=== PATIENT | female | born 1985 | race Caucasian/White ===

== ENCOUNTER → 2018-01-14 08:23 | Outpatient (CLI) | payer MEDICAID, SELFPAY ==
--- NOTE | 2018-01-14 08:27 | US_ITS ---
US abdomen complete HISTORY: Bloating. Abdominal pain 30 pound weight gain. ITS.REASON: HEPATITIS C ,DRUG ABUSE AND DEPENDENCE ORDERING PHYSICIAN: Malena Fitzgerald PATIENT AGE: 32 years COMPARISON: None FINDINGS: PANCREAS:Unremarkable. No obvious mass or abnormal fluid collection. No ductal dilatation LIVER:No focal liver lesions demonstrated. Fairly Homogeneous echogenicity only question some subtle fatty changes and coarsening. No discrete lesions or findings. No intrahepatic biliary ductal dilatation evident GALLBLADDER:No gallstones, . There is definite sludge seen particularly on the decubitus views. COMMON DUCT normal diameter measuring 2.5 mm at hilum of liver RIGHT KIDNEY:Unremarkable. Normal size and echogenicity. No hydronephrosis Right kidney measures 11.5 cm in length and the left kidney 11.7 seem in length. Cortex well-maintained bilaterally . LEFT KIDNEY:Unremarkable. No hydronephrosis. Normal size and echogenicity. AORTA:No evidence of aneurysmal dilatation. 1.2 Cm at the level of umbilicus & tapers as it continues distal SPLEEN:Appears Satisfactory. It is normal to upper normal size, measuring 12 cm length. Normal size & echogenicity ASCITES:None evident. IMPRESSION:....... 1. Gallbladder. No gallstones but Definite sludge and debris noted 2. Liver. No significant focal abnormalities.. Overall satisfactory. 3. Pancreas, kidneys, aorta unremarkable Spleen upper normal size
== END ==
PROVIDERS: PCP Nurse Practitioner; Visit Provider Nurse Practitioner
DX: B17.10 Acute hepatitis C without hepatic coma (principal); F19.20 Other psychoactive substance dependence, uncomplicated
CPT/HCPCS: 76700

== ENCOUNTER → 2018-02-11 10:40 | Outpatient (CLI) | payer MEDICAID, SELFPAY ==
--- NOTE | 2018-02-11 10:46 | NM_ITS ---
I am HEPATOBILIARY SCAN WITH FATTY MEAL/ENSURE ORDERING PHYSICIAN : Malena Fitzgerald PATIENT AGE: 32 years GENDER: Female HISTORY: Right upper quadrant pain and nausea Abdominal pain drug abuse positive for hepatitis C Following 8.02 millicuries Tc Choletec, images of the RUQ were obtained. There is prompt uptake of radionuclide by the liver which is grossly unremarkable.. Overall good uptake by the liver with no focal lesions. Small bowel is visualized. This initial portion of the study is normal. The gallbladder was allowed to fill out to 60 minutes. Fatty meal/1 can of ensure over administered with imaging performed over 60 minutes minutes. Thereafter the obtain data was analyzed and reveals a robust 95% gallbladder ejection fraction (normal greater than 50%; borderline 35-50%). This is normal value . Visual inspection which supports that there is robust gallbladder ejection fraction IMPRESSION: Normal functioning gallbladder. 95 % % gallbladder ejection fraction by computer analysis. No pain after fatty meal.
--- NOTE | 2018-02-11 11:15 | HMH.ITSHM ---
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 []REMERON
== END ==
PROVIDERS: PCP Nurse Practitioner; Visit Provider Nurse Practitioner
DX: R10.9 Unspecified abdominal pain (principal); F19.20 Other psychoactive substance dependence, uncomplicated
CPT/HCPCS: 78226; A9537

== ENCOUNTER 2020-02-03 10:19 | Emergency (ER) | payer BC, SELFPAY ==
[2020-02-03 10:41] VITALS: BP 123/86; PULSE 86; RESP 19; TEMP 36.8; O2SAT 100; BMI 25.6
--- NOTE | 2020-02-03 10:47 | HMH.EDUTC ---
[facility] [place] Clinical Impression: Cough Disposition: Home, Self-Care Condition on Discharge: Good Instructions: Cough, DI for Nasal Congestion Additional Instructions: *Monitor Temp, Over the counter Motrin or Tylenol as directed/as needed Tylenol every 4 hours and Motrin every 6 hours (as long as your family doctor has told you that you can take it) for fever or pain. and straight to ER if unable to lower temp less than 101.0 after medication given *Warm salt water gargles may help to soothe the throat *Throat Lozenges *Warm fluids like tea with honey may help to soothe the throat *Sleep elevated *Humidifier/Vaporizer *Bromfed may cause drowsiness. Know how it effects you (your child) before driving, caring for small child, or sending your child to school. Not other antihistamines/allergy medications while taking bromfed Follow up IMMEDIATELY for new or worsening symptoms or no Noticeable improvement over the next 48-72 hours. 911 for difficulty breathing or swallowing You were tested for today for COVID19 your test result should be back in the next 24-48 hours, you may call to the [facility] to see if your test results are back in the next 48 hours [phone] [facility] hours are 9am-9pm You was given a handout with instructions for Self Quarantine and Self isolation for while you wait on test results and what to do if they are positive If you are positive the Health Dept will be contacting you also Prescriptions: Brompheniramine/Pseudoephed/Dm [Bromfed Dm Cough Syrup] 5 - 10 ml PO Q46H PRN #150 ml PRN Reason: Cough Transmission Status: Pending to [id number] Fluticasone Propionate [Flonase 50mcg nasal spray 16gm] 1 spr NS DAILY #1 bottle Transmission Status: Pending to [id number] Referrals: Malena Fitzgerald APRN [Primary Care Provider] - As needed Forms: Work/School Release Time of Disposition: 10:53 Medical Decision Making - Richard Inquiry Pt receiving controlled substance: No Richard was queried for this patient: No Vital Signs: 02/03/20 10:41 Temperature 98.3 F Temperature Source Oral Pulse Rate [Radial] 86 Respiratory Rate 19 Blood Pressure [Right Arm] 123/86 Blood Pressure Mean [Right Arm] 98 Blood Pressure Source [Right Arm] Automatic Cuff Blood Pressure Position [Right Arm] Sitting 02 Sat by Pulse Oximetry 100 Oxygen Delivery Method Room Air Orders (Tests/Meds): ORDERS Category Date Time Status Covid-19 Nasal PCR Sendout [facility] 02/03/20 10:29 Ordered [facility] HPI - General Stated complaint: covid exposure Time Seen by Provider: 02/03/20 10:47 Mode of Arrival: Ambulatory Source of Information: Patient Limitations: No Limitations Description of Symptoms (Recalled from Triage Doc. by RN): covid exposure, no symptoms HEENT Symptoms (Recalled from RN notes): No Resp Symptoms (Recalled from RN notes): No Skin Symptoms (Recalled from RN notes): No MS Symptoms (Recalled from RN notes): No Functional Status (Recalled from RN notes): wnl - History of Present Illness Provider Complaint: Patient state that she was recently around someone that has recently tested positive for COVID states that she has had runny nose and cough but has allergies and that is common this time of year State that she wanted to get tested to see if she may have it or not - Related Data Previous Rx's Medication Instructions Recorded Brompheniramine/Pseudoephed/Dm 5 - 10 ml PO Q46H PRN #150 ml 02/03/20 [Bromfed Dm Cough Syrup] Fluticasone Propionate [Flonase 1 spr NS DAILY #1 bottle 02/03/20 50mcg nasal spray 16gm] Allergies Allergy/AdvReac Type Severity Reaction Status Date / Time No Known Allergies Allergy Unverified 02/13/17 14:47 - Worker's Comp Is this a Worker's Comp case?: No [facility] History - Hepatitis A Screen Drug use history?: No High risk sexual behaviors?: No History of sexually transmitted infection?: No 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
[2020-02-03 11:01] VITALS: BP 123/86; PULSE 86; RESP 19; TEMP 36.8; O2SAT 100
[2020-02-04 14:14] LABS: Covid-19 Nasal PCR Sendout Lex Not Detected
== END 2020-02-03 11:02 | disposition home or self-care (01) ==
PROVIDERS: Emergency Provider Nurse Practitioner; PCP Nurse Practitioner
DX: Z20.828 Contact with and (suspected) exposure to other viral communicable diseases (principal); F17.210 Nicotine dependence, cigarettes, uncomplicated; R05 Cough
CPT/HCPCS: 99201; U0004

== ENCOUNTER → 2021-01-28 14:42 | Outpatient (CLI) | payer BC, MEDICAID, SELFPAY ==
[2021-01-28 16:25] LABS: Hematocrit 40.4 % (37.0-47.0); Hemoglobin 14.1 g/dL (12.2-16.2); Mean Corpuscular HGB Conc 34.8 g/dL (31.8-35.4); Mean Corpuscular Hemoglobin 31.9 pg (27.0-31.2); Mean Corpuscular Volume 91.9 fl (81-99); Platelet Count 219 K/mm3 (142-424); White Blood Count 6.3 K/mm3 (4.8-10.8)
[2021-01-28 16:29] LABS: Prothrombin Time 11.3 seconds (10.1-12.5)
[2021-01-28 16:31] LABS: Alanine Aminotransferase 15 U/L (12-78); Albumin/Globulin Ratio 1.5 (1.1-1.8); Alkaline Phosphatase 43 U/L (38-126); Anion Gap 7.1 mEq/L (5-15); Aspartate Amino Transferase 24 U/L (14-36); Bilirubin,Total 0.6 mg/dl (0.2-1.3); Blood Urea Nitrogen 10 mg/dl (7-17); Calcium 9.3 mg/dl (8.4-10.2); Carbon Dioxide 27 mmol/L (22.0-30.0); Chloride 105 mmol/L (98-107); Estimated Glomerular Filt Rate 115 ml/min (>60); GFR (African American) 139 ML/MIN (>60); Globulin 2.6 g/dL (1.3-3.2); Glucose 107 mg/dl (74-100); Potassium 4.1 mmoL/L (3.5-5.1); Sodium 135 mmol/L (136-145); Total Protein,Serum 6.6 g/dl (6.3-8.2)
[2021-01-28 16:35] LABS: HCG Qualitative, Serum Negative (Negative)
== END ==
PROVIDERS: Visit Provider Nurse Practitioner Acute Care
DX: B18.2 Chronic viral hepatitis C (principal)
CPT/HCPCS: 36415; 80053; 84703; 85014; 85018; 85048; 85049; 85610; 87522

== ENCOUNTER → 2021-04-02 09:31 | Outpatient (CLI) | payer BC, MEDICAID, SELFPAY ==
[2021-04-02 10:21] LABS: Basophils # 0.1 K/mm3 (0-0.2); Basophils % 0.6 % (0.1-2.0); Eosinophils # 0.3 K/mm3 (0.0-0.4); Eosinophils % 3.9 % (0.1-12.0); Hematocrit 42.6 % (37.0-47.0); Hemoglobin 13.9 g/dL (12.2-16.2); Lymphocytes # 2.1 K/mm3 (0.7-4.5); Lymphocytes % 28.8 % (10-50); Mean Corpuscular HGB Conc 32.7 g/dL (31.8-35.4); Mean Corpuscular Hemoglobin 31.9 pg (27.0-31.2); Mean Corpuscular Volume 97.5 fl (81-99); Mean Platelet Volume 8.7 fl (7.4-10.4); Monocytes # 0.3 K/mm3 (0.1-1.0); Monocytes % 3.9 % (1.7-9.3); Neutrophils # 4.6 K/mm3 (1.8-7.8); Neutrophils % 62.8 % (37.0-80.0); Platelet Count 233 K/mm3 (142-424); Red Blood Count 4.37 M/mm3 (4.20-5.40); Red Cell Distribution Width 13.1 % (11.5-17.5); White Blood Count 7.4 K/mm3 (4.8-10.8)
[2021-04-02 10:32] LABS: INR 1.01 (0.9-1.1); Prothrombin Time 11.4 seconds (10.1-12.5)
[2021-04-02 11:35] LABS: Urine Pregnancy, HCG Qual. Negative (Negative)
== END ==
PROVIDERS: PCP Nurse Practitioner Family; Visit Provider Nurse Practitioner Acute Care
DX: B18.2 Chronic viral hepatitis C (principal)
CPT/HCPCS: 36415; 81025; 85025; 85610; 87522

== ENCOUNTER → 2021-05-20 13:06 | Outpatient (CLI) | payer BC, MEDICAID, SELFPAY ==
[2021-05-23 01:17] LABS: Neisseria gonorrhoeae, NAA Negative (Negative)
== END ==
PROVIDERS: Visit Provider Obstetrics & Gynecology
DX: Z72.51 High risk heterosexual behavior (principal)
CPT/HCPCS: 87491; 87591

== ENCOUNTER → 2021-06-27 13:16 | Outpatient (CLI) | payer BC, MEDICAID, SELFPAY ==
[2021-06-27 14:04] LABS: Hemoglobin 13.8 g/dL (12.2-16.2); Mean Corpuscular HGB Conc 34.6 g/dL (31.8-35.4); Mean Corpuscular Hemoglobin 32.8 pg (27.0-31.2); Mean Corpuscular Volume 94.9 fl (81-99); Platelet Count 257 K/mm3 (142-424); Red Blood Count 4.22 M/mm3 (4.20-5.40); Red Cell Distribution Width 13.2 % (11.5-17.5)
[2021-06-27 14:08] LABS: INR 0.97 (0.9-1.1)
[2021-06-27 14:14] LABS: Urine Pregnancy, HCG Qual. Negative (Negative)
[2021-06-27 14:34] LABS: Alanine Aminotransferase 18 U/L (12-78); Albumin Level 3.9 g/dl (3.5-5.0); Albumin/Globulin Ratio 1.6 (1.1-1.8); Alkaline Phosphatase 44 U/L (38-126); Anion Gap 8.9 mEq/L (5-15); Aspartate Amino Transferase 20 U/L (14-36); Bilirubin,Total 0.7 mg/dl (0.2-1.3); Blood Urea Nitrogen 9 mg/dl (7-17); Calcium 8.8 mg/dl (8.4-10.2); Carbon Dioxide 25 mmol/L (22.0-30.0); Chloride 108 mmol/L (98-107); Estimated Glomerular Filt Rate 184 ml/min (>60); GFR (African American) 222 ML/MIN (>60); Globulin 2.5 g/dL (1.3-3.2); Glucose 101 mg/dl (74-100); Potassium 3.9 mmoL/L (3.5-5.1); Sodium 138 mmol/L (136-145); Total Protein,Serum 6.4 g/dl (6.3-8.2)
== END ==
PROVIDERS: PCP Nurse Practitioner Family; Visit Provider Nurse Practitioner Acute Care
DX: B18.2 Chronic viral hepatitis C (principal)
CPT/HCPCS: 36415; 80053; 81025; 85014; 85018; 85048; 85049; 85610; 87522

== ENCOUNTER 2021-11-15 12:48 | Emergency (ER) | payer MEDICAID, SELFPAY ==
[2021-11-15 12:48] VITALS: BP 123/86; PULSE 90; RESP 18; TEMP 36.7; O2SAT 98; BMI 24.1
--- NOTE | 2021-11-15 13:04 | EXP.UTC ---
Discharge Plan Disposition Patient Disposition: Home, Self-Care Condition: Good Prescriptions Prescriptions: New benzonatate [benzonatate] 100 mg capsule 100 mg PO TIDP PRN (Reason: Cough) Qty: 30 0RF ondansetron 4 mg Tablet,Disintegrating 4 mg PO Q8H PRN (Reason: Nausea) Qty: 20 0RF No Action norgestimate-ethinyl estradiol [Sprintec (28)] 0.25-35 mg-mcg tablet 1 tab PO DAILY 30 Days Qty: 30 11RF Referrals Follow up/Referrals: Provider,Referral, MD [Primary Care Provider] - See instructions Activity Restrictions/Add. Instructions Additional Instructions/Restrictions: Drink plenty of fluids. Take tylenol or ibuprofen for pain or fever. Take the medications as directed. Follow up with your regular doctor. GO TO THE ER FOR ANY WORSENING SYMPTOMS Quarantine until you know the results of your covid-19 test. Notify your school or workplace of your results and follow their instructions regarding return to work/school. Clinical Impressions Clinical Impression: Viral syndrome, Exposure to 2019 novel coronavirus Stand Alone Forms Stand Alone Forms: Work/School Release Instructions Patient Instructions: Coronavirus Disease 2019, Preventing the Spread of Coronavirus Discharge Instructions Discharge ED Provider: David Madsen [facility] General Stated complaint: [place], body aches Time Seen by Provider: 11/15/21 13:04 History of Present Illness Provider Complaint: She c/o body aches, chills, and malaise for the past 1 day. Related Data Previous Rx's Medication Instructions Recorded norgestimate 0.25 mg-ethinyl 1 tab PO DAILY 30 days #30 tabs 11/03/21 estradiol 35 mcg tablet (Sprintec (28)) benzonatate 100 mg capsule 100 mg PO TIDP PRN Cough #30 caps 11/15/21 ondansetron 4 mg disintegrating 4 mg PO Q8H PRN Nausea #20 tabs 11/15/21 tablet Allergies Allergy/AdvReac Type Severity Reaction Status Date / Time No Known Allergies [facility]21 [facility] History Smoking Status: Current every day smoker tobacco type: cigarettes packs per day: 1 second hand exposure: Yes alcohol intake: never substance use type: crack/cocaine, heroin and opiates current occupational status: employed Travel in the last 8 weeks: None ROS Obtained: Yes All systems reviewed & no additional complaints except as documented Constitutional Constitutional: Reports system reviewed and no additional complaints, except as documented, Denies chills and Denies fever(s) Eyes Eyes: Denies eye discharge ENT Ears, Nose, Mouth, and Throat: Denies dysphagia, Denies sore throat and Denies throat swelling Cardiovascular Cardiovascular: Denies chest pain and Denies dyspnea Respiratory Respiratory: Denies chest congestion, Denies cough and Denies dyspnea Gastrointestinal Gastrointestingal: Denies abdominal pain, constipation, diarrhea, dysphagia, nausea or vomiting Musculoskeletal Musculoskeletal: Denies arthralgias Integumentary/Breasts Skin/Breast: Denies rash Neurologic Neurologic: Denies paresthesias Allergic/Immunologic Allergic/Immunologic: Denies throat swelling Physical Exam General General appearance: alert and in no apparent distress Head Head exam: atraumatic, normocephalic and normal inspection Eye Eye exam: Present normal appearance, PERRL and EOMI ENT ENT exam: Present normal exam, normal oropharynx, mucous membranes moist, TM's normal bilaterally and normal external ear exam Neck Neck exam: Present normal inspection, full ROM and trachea midline; Absent meningismus or lymphadenopathy Chest Chest inspection: Present normal inspection and symmetric chest wall rise; Absent tenderness Respiratory Respiratory exam: Present normal lung sounds bilaterally; Absent respiratory distress Cardiovascular Cardiovascular exam: Present regular rate and normal rhythm; Absent JVD Abdominal Exam Abdominal exam: Present sof
[2021-11-15 14:00] VITALS: BP 123/86; PULSE 90; RESP 18; TEMP 36.7; O2SAT 98
== END 2021-11-15 14:00 | disposition home or self-care (01) ==
PROVIDERS: Emergency Provider Nurse Practitioner Family
DX: B34.9 Viral infection, unspecified (principal)
CPT/HCPCS: 99212; C9803; G0463; U0003; U0005

== ENCOUNTER 2022-01-24 17:36 | Emergency (ER) | payer BC, MEDICAID, SELFPAY ==
[2022-01-24 18:55] LABS: UTC Strep Screen (Rapid) Negative (Negative)
[2022-01-24 18:56] LABS: UTC Influenza A Antigen Positive (Negative); UTC Influenza B Antigen Negative (Negative)
--- NOTE | 2022-01-24 18:56 | EXP.UTC ---
Discharge Plan Disposition Patient Disposition: Home, Self-Care Condition: Good Prescriptions Prescriptions: New benzonatate [benzonatate] 100 mg capsule 100 mg PO TIDP PRN (Reason: Cough) Qty: 30 0RF oseltamivir [Tamiflu] 75 mg capsule 75 mg PO BID Qty: 10 0RF methylprednisolone 4 mg Tablets,Dose Pack 4 mg PO DIRECTED Qty: 21 0RF No Action norgestimate-ethinyl estradiol [Sprintec (28)] 0.25-35 mg-mcg tablet 1 tab PO DAILY 30 Days Qty: 30 11RF benzonatate [benzonatate] 100 mg capsule 100 mg PO TIDP PRN (Reason: Cough) Qty: 30 0RF ondansetron 4 mg Tablet,Disintegrating 4 mg PO Q8H PRN (Reason: Nausea) Qty: 20 0RF Referrals Follow up/Referrals: Provider,Referral, MD [Primary Care Provider] - See instructions Activity Restrictions/Add. Instructions Additional Instructions/Restrictions: Drink plenty of fluids. Take tylenol or ibuprofen for pain or fever. Take the medications as directed. Follow up with your regular doctor. GO TO THE ER FOR ANY WORSENING SYMPTOMS Clinical Impressions Clinical Impression: Influenza A Instructions Patient Instructions: DI for Influenza -- Adult, Oseltamivir Discharge ED Provider: David Madsen [facility] General Stated complaint: SORE THROAT, COUGH, BODY ACHES, CONGESTION Time Seen by Provider: 01/24/22 18:55 History of Present Illness Provider Complaint: She states that for the past 2 days she has had sore throat, chills, body aches and low grade fever. Related Data Previous Rx's Medication Instructions Recorded norgestimate 0.25 mg-ethinyl 1 tab PO DAILY 30 days #30 tabs 11/03/21 estradiol 35 mcg tablet (Sprintec (28)) benzonatate 100 mg capsule 100 mg PO TIDP PRN Cough #30 caps 11/15/21 ondansetron 4 mg disintegrating 4 mg PO Q8H PRN Nausea #20 tabs 11/15/21 tablet benzonatate 100 mg capsule 100 mg PO TIDP PRN Cough #30 caps 01/24/22 methylprednisolone 4 mg tablets in 4 mg PO DIRECTED #21 tabs 01/24/22 a dose pack oseltamivir 75 mg capsule (Tamiflu) 75 mg PO BID #10 caps 01/24/22 Allergies Allergy/AdvReac Type Severity Reaction Status Date / Time No Known Allergies Allergy Verified 01/24/22 19:04 PFSH PFS Social History Smoking Status: Current every day smoker tobacco type: cigarettes packs per day: 1 second hand exposure: Yes alcohol intake: never substance use type: crack/cocaine, heroin and opiates current occupational status: employed Travel in the last 8 weeks: None ROS Obtained: Yes All systems reviewed & no additional complaints except as documented Constitutional Constitutional: Reports chills and Reports fever(s) Eyes Eyes: Denies eye discharge ENT Ears, Nose, Mouth, and Throat: Reports as per HPI Cardiovascular Cardiovascular: Denies chest pain Respiratory Respiratory: Denies chest congestion and Reports cough Gastrointestinal Gastrointestingal: Reports nausea; Denies abdominal pain, constipation, cramping, diarrhea or vomiting Musculoskeletal Musculoskeletal: Denies arthralgias Integumentary/Breasts Skin/Breast: Denies rash Neurologic Neurologic: Denies paresthesias Physical Exam General General appearance: alert and in no apparent distress Head Head exam: atraumatic, normocephalic and normal inspection Eye Eye exam: Present normal appearance, PERRL and EOMI ENT ENT exam: Present normal exam, normal oropharynx, mucous membranes moist, TM's normal bilaterally and normal external ear exam Neck Neck exam: Present normal inspection, full ROM and trachea midline; Absent meningismus or lymphadenopathy Chest Chest inspection: Present normal inspection and symmetric chest wall rise; Absent tenderness Respiratory Respiratory exam: Present normal lung sounds bilaterally; Absent respiratory distress Cardiovascular Cardiovascular exam: Present regular rate and normal rhythm; Absent JVD Abdominal Exam Abdominal exam: P
[2022-01-24 18:59] VITALS: BP 129/88; PULSE 103; RESP 16; TEMP 36.9; O2SAT 98; BMI 24.5
[2022-01-24 19:39] VITALS: BP 129/88; PULSE 103; RESP 16; TEMP 36.9
== END 2022-01-24 19:45 | disposition home or self-care (01) ==
PROVIDERS: Emergency Provider Nurse Practitioner Family
DX: J10.1 Influenza due to other identified influenza virus with other respiratory manifestations (principal); R50.9 Fever, unspecified; R05.9 Cough, unspecified; R11.0 Nausea; M79.10 Myalgia, unspecified site; Z79.3 Long term (current) use of hormonal contraceptives; Z79.52 Long term (current) use of systemic steroids; Z79.899 Other long term (current) drug therapy
CPT/HCPCS: 87804; 87880; 99213; G0463

== ENCOUNTER 2022-05-06 12:45 | Emergency (ER) | payer MEDICAID, SELFPAY ==
[2022-05-06 12:50] VITALS: BP 140/97; PULSE 119; RESP 20; TEMP 36.9; O2SAT 97; BMI 23.9
--- NOTE | 2022-05-06 12:59 | XR_ITS ---
PROCEDURE INFORMATION: Exam: XR Right Foot Exam date and time: 05/06/2022 12:59 PM Age: 36 years old Clinical indication: Pain; Foot; Right TECHNIQUE: Imaging protocol: Radiologic exam of the right foot. Views: 3 or more views. COMPARISON: No relevant prior studies available. FINDINGS: Bones/joints: Degenerative changes in the 1st metatarsal-phalangeal joint. Lucencies in the proximal phalanx of the little toe consistent with nondisplaced fracture.. Soft tissues: Soft tissue swelling of the little toe IMPRESSION: Lucencies in the proximal phalanx of the little toe consistent with nondisplaced fracture..
[2022-05-06 13:12] VITALS: BP 140/97; PULSE 119; RESP 20; TEMP 36.9; O2SAT 97
--- NOTE | 2022-05-06 13:20 | EXP.UTC ---
Discharge Plan Disposition Patient Disposition: Home, Self-Care Condition: Good Prescriptions Prescriptions: New ibuprofen 800 mg tablet 800 mg PO TID PRN (Reason: pain) Qty: 30 0RF Referrals Follow up/Referrals: Provider,Referral, MD [Primary Care Provider] - See instructions Clinical Impressions Clinical Impression: Fracture of toe of right foot Instructions Patient Instructions: DI for Toe Fracture Discharge ED Provider: Bianca Sparks [facility] General Stated complaint: AO 05/05 right pinkey toe black and blue/ swollen Mode of Arrival: Ambulatory Source of Information: Patient Limitations: No Limitations Time Seen by Provider: 05/06/22 13:00 Description of Symptoms (Recalled from Triage Doc. by RN): PATIENT STATES SHE HIT HER RIGHT FOOT ON A COFFEE TABLE LAST NIGHT. C/O PAIN AND BRUISING TO RIGHT PINKY TOE AREA HEENT Symptoms (Recalled from RN notes): No Resp Symptoms (Recalled from RN notes): No Skin Symptoms (Recalled from RN notes): No MS Symptoms (Recalled from RN notes): Yes Functional Status (Recalled from RN notes): WNL History of Present Illness Provider Complaint: Pt states that she caught her pinky toe of her right foot on the bedside table and is concerned she may have broken her toe and possibly her foot. Related Data Previous Rx's Medication Instructions Recorded ibuprofen 800 mg tablet 800 mg PO TID PRN pain #30 tabs 05/06/22 Allergies Allergy/AdvReac Type Severity Reaction Status Date / Time No Known Allergies Allergy Verified 01/24/22 19:04 Worker's Comp Is this a Worker's Comp case?: No [facility] Disclaimer: The information contained in this section may have been updated after the patient was seen, as this information can be updated by other users. Social History Smoking Status: Current every day smoker tobacco type: cigarettes packs per day: 1 second hand exposure: Yes alcohol intake: never substance use type: crack/cocaine, heroin and opiates current occupational status: employed Travel in the last 8 weeks: None ROS Obtained: Yes All systems reviewed & no additional complaints except as documented Constitutional Constitutional: Reports system reviewed and no additional complaints, except as documented Eyes Eyes: Reports system reviewed and no additional complaints, except as documented ENT Ears, Nose, Mouth, and Throat: Reports system reviewed and no additional complaints, except as documented Cardiovascular Cardiovascular: Reports system reviewed and no additional complaints, except as documented Respiratory Respiratory: Reports system reviewed and no additional complaints, except as documented Gastrointestinal Gastrointestingal: Reports system reviewed and no additional complaints, except as documented Genitourinary Female Genitourinary: Reports system reviewed and no additional complaints, except as documented Musculoskeletal Musculoskeletal: Reports as per HPI, Reports joint swelling and Reports limited range of motion Integumentary/Breasts Skin/Breast: Reports system reviewed and no additional complaints, except as documented Comments: bruising of right toe and foot Neurologic Neurologic: Reports system reviewed and no additional complaints, except as documented Endocrine Endocrine: Reports system reviewed and no additional complaints, except as documented Hematologic/Lymphatic Henatologic/Lymphatic: Reports system reviewed and no additional complaints, except as documented Allergic/Immunologic Allergic/Immunologic: Reports system reviewed and no additional complaints, except as documented Physical Exam General General appearance: alert and in no apparent distress Head Head exam: atraumatic and normocephalic Eye Eye exam: Present normal appearance ENT ENT exam: Present normal exam Neck Neck exam: Present normal inspection Chest Chest inspection: Present normal inspection and symmetric isabel
== END 2022-05-06 13:25 | disposition home or self-care (01) ==
PROVIDERS: Emergency Provider Nurse Practitioner Family
DX: S92.354A Nondisplaced fracture of fifth metatarsal bone, right foot, initial encounter for closed fracture (principal); F17.210 Nicotine dependence, cigarettes, uncomplicated; F11.10 Opioid abuse, uncomplicated; F14.10 Cocaine abuse, uncomplicated; W22.03XA Walked into furniture, initial encounter
CPT/HCPCS: 73630; 99212; 99214; G0463

== ENCOUNTER 2022-07-03 18:40 | Emergency (ER) | payer OTHER, MEDICAID, SELFPAY ==
[2022-07-03 19:30] VITALS: BP 126/78; PULSE 76; RESP 18; TEMP 37; O2SAT 100; BMI 23.3
[2022-07-03 19:44] LABS: UTC Strep Screen (Rapid) Positive (Negative)
[2022-07-03 20:02] VITALS: BP 126/78; PULSE 76; RESP 18; TEMP 37; O2SAT 100
--- NOTE | 2022-07-03 20:10 | EXP.UTC ---
Discharge Plan Disposition Patient Disposition: Home, Self-Care Condition: Good Prescriptions Prescriptions: No Action norethindrone-e.estradiol-iron [Kandace Fe 03/17 (28)] 1 mg-20 mcg (21)/75 mg (7) tablet 1 tab PO DAILY Qty: 84 2RF ibuprofen 800 mg tablet 800 mg PO TID PRN (Reason: pain) Qty: 30 0RF Referrals Follow up/Referrals: Genevieve Mina APRN [Primary Care Provider] - See instructions Activity Restrictions/Add. Instructions Additional Instructions/Restrictions: *Monitor Temp, Over the counter Motrin or Tylenol as directed/as needed Tylenol every 4 hours and Motrin every 6 hours (as long as your family doctor has told you that you can take it) for fever or pain. and straight to ER if unable to lower temp less than 101.0 after medication given *Warm salt water gargles may help to soothe the throat *Throat Lozenges? *Warm fluids like tea with honey may help to soothe the throat? *Sleep elevated *Humidifier/Vaporizer *If you did not take Penicillin shot or was unable to, start taking antibiotic immediately and make sure that you take it for the FULL length of time although you should start to feel better in 24-48 hours *change toothbrush and toothpaste 24-48 hours after starting to take antibiotics so you do not reinfect yourself Monitor Temp. Tylenol and/or Ibuprofen as needed. ER if fever is no less than 101 despite alternating Tylenol and Ibuprofen * Encourage fluids, water, Gatorade, powerade, pedialyte if /toddler/or child *Cold fluids, popsicles and ice cream may feel good on his throat Follow up IMMEDIATELY for new or worsening symptoms or no Noticeable improvement over the next 48-72 hours. 911 for difficulty breathing or swallowing Clinical Impressions Clinical Impression: Strep throat Stand Alone Forms Stand Alone Forms: Work/School Release Instructions Patient Instructions: Strep Throat, DI for Strep Throat Discharge ED Provider: Apple Moreno [facility] General Stated complaint: sore throat Mode of Arrival: Ambulatory Source of Information: Patient Limitations: No Limitations Time Seen by Provider: 07/03/22 20:10 Description of Symptoms (Recalled from Triage Doc. by RN): PATIENT C/O SORE THROAT AND NASAL CONGESTION HEENT Symptoms (Recalled from RN notes): Yes Resp Symptoms (Recalled from RN notes): No Skin Symptoms (Recalled from RN notes): No MS Symptoms (Recalled from RN notes): No Functional Status (Recalled from RN notes): WNL History of Present Illness Provider Complaint: Patient states that she has been having sore throat and sinus pressure with drainage in the back of her throat States today she wasnt feeling any better so she came in Related Data Previous Rx's Medication Instructions Recorded ibuprofen 800 mg tablet 800 mg PO TID PRN pain #30 tabs 05/06/22 norethindrone 1 mg-ethinyl 1 tab PO DAILY #84 tabs 05/11/22 estradiol 20 mcg (21)-iron 75 mg (7) tablet (Kandace Fe 03/17 (28)) Allergies Allergy/AdvReac Type Severity Reaction Status Date / Time No Known Allergies Allergy Verified 01/24/22 19:04 Worker's Comp Is this a Worker's Comp case?: No PFSH PFS Disclaimer: The information contained in this section may have been updated after the patient was seen, as this information can be updated by other users. Social History Smoking Status: Current every day smoker tobacco type: cigarettes packs per day: 1 second hand exposure: Yes alcohol intake: never substance use type: crack/cocaine, heroin and opiates current occupational status: employed Travel in the last 8 weeks: None ROS Obtained: Yes All systems reviewed & no additional complaints except as documented and Yes Systems reviewed as appropriate & no additional complaints except as documented Constitutional Constitutional: Reports system reviewed and no additional complaints, except as documented and Reports a
== END 2022-07-03 20:23 | disposition home or self-care (01) ==
PROVIDERS: Emergency Provider Nurse Practitioner; PCP Nurse Practitioner Family
DX: J02.0 Streptococcal pharyngitis (principal); F17.210 Nicotine dependence, cigarettes, uncomplicated
CPT/HCPCS: 87880; 99212; 99214; G0463

== ENCOUNTER → 2022-07-26 16:41 | Outpatient (CLI) | payer OTHER, MEDICAID, SELFPAY ==
[2022-07-28 12:22] LABS: Progesterone 10.6 ng/mL (.)
== END ==
PROVIDERS: PCP Nurse Practitioner Family; Visit Provider Obstetrics & Gynecology
DX: Z31.69 Encounter for other general counseling and advice on procreation (principal)
CPT/HCPCS: 36415; 84144

== ENCOUNTER 2022-09-27 19:03 | Emergency (ER) | payer BC, MEDICAID, SELFPAY ==
[2022-09-27 19:14] VITALS: BP 140/85; PULSE 68; RESP 16; TEMP 37.1; O2SAT 100; BMI 23.6
--- NOTE | 2022-09-27 19:26 | EXP.UTC ---
Discharge Plan Disposition Patient Disposition: Home, Self-Care Condition: Good Prescriptions Prescriptions: New ibuprofen [IBU] 800 mg tablet 800 mg PO Q8HP PRN (Reason: Moderate Pain) Qty: 30 0RF amoxicillin [amoxicillin] 875 mg tablet 875 mg PO Q12H Qty: 20 0RF Discontinued Classic 28 mg iron- 800 mcg tablet 1 tab PO DAILY 90 Days Qty: 90 0RF cefdinir 300 mg capsule 300 mg PO BID Qty: 20 0RF fluticasone propionate [Flonase Allergy Relief] 50 mcg/actuation spray,suspension 1 - 2 spray intranasal DAILY Qty: 16 0RF Rx Instructions: administer into each nostril Referrals Follow up/Referrals: Genevieve Mina APRN [Primary Care Provider] - See instructions Activity Restrictions/Add. Instructions Additional Instructions/Restrictions: Take the ibuprofen 800 mg that we prescribed for pain. Take the amoxicillin (antibiotics) as directed. Follow up with your regular doctor. Follow up with your dentist william. GO TO THE ER FOR ANY WORSENING SYMPTOMS Clinical Impressions Clinical Impression: Abscess, dental, Pain, dental Stand Alone Forms Stand Alone Forms: Work/School Release Instructions Patient Instructions: Tooth Abscess, DI for Tooth Abscess, DI for Dental Pain Discharge ED Provider: David Madsen [facility] General Stated complaint: dental pain Mode of Arrival: Ambulatory Source of Information: Patient Limitations: No Limitations Time Seen by Provider: 09/27/22 19:26 Description of Symptoms (Recalled from Triage Doc. by RN): right sided tooth pain, swelling HEENT Symptoms (Recalled from RN notes): No Resp Symptoms (Recalled from RN notes): No Skin Symptoms (Recalled from RN notes): No MS Symptoms (Recalled from RN notes): No Functional Status (Recalled from RN notes): no History of Present Illness Provider Complaint: She states that for the past 3 days she has had left lower jaw dental pain and swelling of her gums in that area. She has a history of having several decayed teeth in the affected area. Related Data Previous Rx's Medication Instructions Recorded amoxicillin 875 mg tablet 875 mg PO Q12H #20 tabs 09/27/22 ibuprofen 800 mg tablet (IBU) 800 mg PO Q8HP PRN Moderate Pain 09/27/22 #30 tabs Allergies Allergy/AdvReac Type Severity Reaction Status Date / Time No Known Allergies Allergy Verified 07/07/22 14:11 Worker's Comp Is this a Worker's Comp case?: No [facility] Disclaimer: The information contained in this section may have been updated after the patient was seen, as this information can be updated by other users. Surgical History (Updated 07/07/22 @ 14:12 by JAYNE Wilson) No history of previous surgery Family History (Updated 07/07/22 @ 14:13 by JAYNE Wilson) Father Cancer Other Diabetes Thyroid disorder Social History Smoking Status: Current every day smoker tobacco type: cigarettes packs per day: 1 second hand exposure: Yes alcohol intake: never substance use type: crack/cocaine, heroin and opiates current occupational status: employed Travel in the last 8 weeks: None ROS Obtained: Yes All systems reviewed & no additional complaints except as documented Constitutional Constitutional: Denies chills and Denies fever(s) Eyes Eyes: Denies eye discharge ENT Ears, Nose, Mouth, and Throat: Reports as per HPI, Denies dizziness, Denies otalgia and Denies sore throat Cardiovascular Cardiovascular: Denies chest pain Respiratory Respiratory: Denies shortness of breath, Denies chest congestion, Denies cough, Denies stridor and Denies wheezing Gastrointestinal Gastrointestingal: Denies nausea or vomiting Musculoskeletal Musculoskeletal: Reports system reviewed and no additional complaints, except as documented and Denies arthralgias Integumentary/Breasts Skin/Breast: Denies rash Neurologic Neurologic: Denies dizziness and Denies pare
[2022-09-27 19:55] VITALS: BP 140/85; PULSE 68; RESP 16; TEMP 37.1; O2SAT 100
== END 2022-09-27 19:57 | disposition home or self-care (01) ==
PROVIDERS: Emergency Provider Nurse Practitioner Family; PCP Nurse Practitioner Family
DX: R68.84 Jaw pain (principal); K04.7 Periapical abscess without sinus; F17.210 Nicotine dependence, cigarettes, uncomplicated
CPT/HCPCS: 99212; 99214; G0463

== ENCOUNTER 2022-10-07 11:54 | Emergency (ER) | payer BC, MEDICAID, SELFPAY ==
[2022-10-07 12:00] VITALS: BP 121/85; PULSE 86; RESP 20; TEMP 36.7; O2SAT 97; BMI 22.3
[2022-10-07 12:31] VITALS: BP 121/85; PULSE 86; RESP 20; TEMP 36.7; O2SAT 97
--- NOTE | 2022-10-07 12:32 | EXP.UTC ---
Discharge Plan Disposition Patient Disposition: Home, Self-Care Condition: Good Prescriptions Prescriptions: New phenazopyridine [Pyridium] 200 mg tablet 200 mg PO Q8H 2 Days Qty: 6 0RF sulfamethoxazole-trimethoprim [Bactrim DS] 800-160 mg Tablet 1 tab PO BID Qty: 14 0RF No Action amoxicillin [amoxicillin] 875 mg tablet 875 mg PO Q12H ibuprofen [IBU] 800 mg tablet 800 mg PO Q8HP PRN (Reason: Moderate Pain) Qty: 30 0RF Referrals Follow up/Referrals: Genevieve Mina APRN [Primary Care Provider] - See instructions Activity Restrictions/Add. Instructions Additional Instructions/Restrictions: Drink plenty of fluids. Take tylenol or ibuprofen for pain or fever. Take the medications as directed. Follow up with your regular doctor. GO TO THE ER FOR ANY WORSENING SYMPTOMS The pyridium will make your urine turn orange, this is an expected side effect. It will stain your clothes if it comes into contact with them. We will culture your urine. That will tell what bacteria is causing your infection and which antibiotics will treat it best. Sometimes the first antibiotic we prescribe turns out to not work against different bacteria. So, make sure you follow up within 3 days if you are not getting better. Clinical Impressions Clinical Impression: UTI (urinary tract infection) Instructions Patient Instructions: Urine Culture, DI for Urinary Tract Infection (UTI), Phenazopyridine Discharge ED Provider: David Madsen [facility] General Stated complaint: burning when urinating Mode of Arrival: Ambulatory Source of Information: Patient Limitations: No Limitations Time Seen by Provider: 10/07/22 12:30 Description of Symptoms (Recalled from Triage Doc. by RN): PATIENT C/O FREQUENCY, BLOOD AND PAIN WITH URINATION SINCE YESTERDAY HEENT Symptoms (Recalled from RN notes): No Resp Symptoms (Recalled from RN notes): No Skin Symptoms (Recalled from RN notes): No MS Symptoms (Recalled from RN notes): No Functional Status (Recalled from RN notes): WNL History of Present Illness Provider Complaint: She states that she has had dysuria, low back pain, urinary frequency for the past 1 day. Related Data Home Medications Medication Instructions Recorded Confirmed amoxicillin 875 mg tablet 875 mg PO Q12H TOOTH INFECTION 10/07/22 10/07/22 Previous Rx's Medication Instructions Recorded ibuprofen 800 mg tablet (IBU) 800 mg PO Q8HP PRN Moderate Pain 09/27/22 #30 tabs phenazopyridine 200 mg tablet 200 mg PO Q8H 2 days #6 tabs 10/07/22 (Pyridium) sulfamethoxazole 800 1 tab PO BID #14 tabs 10/07/22 mg-trimethoprim 160 mg tablet (Bactrim DS) Allergies Allergy/AdvReac Type Severity Reaction Status Date / Time No Known Allergies Allergy Verified 07/07/22 14:11 Worker's Comp Is this a Worker's Comp case?: No [facility] Disclaimer: The information contained in this section may have been updated after the patient was seen, as this information can be updated by other users. Medical History (Updated 10/07/22 @ 12:36 by David Madsen APRN) Anxiety Depression Surgical History No history of previous surgery Family History (Updated 07/07/22 @ 14:13 by JAYNE Wilson) Father Cancer Other Diabetes Thyroid disorder Social History Smoking Status: Current every day smoker tobacco type: cigarettes packs per day: 1 second hand exposure: Yes alcohol intake: never substance use type: crack/cocaine, heroin and opiates current occupational status: employed Travel in the last 8 weeks: None ROS Obtained: Yes All systems reviewed & no additional complaints except as documented Constitutional Constitutional: Reports system reviewed and no additional complaints, except as documented, Denies chills and Denies fever(s) Eyes Eyes: Denies eye discharge ENT Ear
[2022-10-07 12:47] LABS: Microscopic, Urine URINE MICROSCOPIC (MICROSCOPIC)
[2022-10-07 12:54] LABS: Appearance,Urine CLOUDY (Clear); Bilirubin,Urine Negative (Negative); Blood, Urine 3+ (Negative); Color,Urine YELLOW (Yellow); Glucose,Urine (UA) Negative (Negative); Ketones,Urine Negative (Negative); Leukocyte Esterase,Urine 2+ (Negative); Nitrate,Urine POSITIVE (Negative); Protein,Urine 3+ (Negative); Specific Gravity, Urine 1.015 (1.005-1.030)
[2022-10-07 13:10] LABS: Bacteria,Urine 3+ /lpf; RBC,Urine 50-100 #/hpf (0-3); WBC,Urine TNTC #/hpf (0-3)
== END 2022-10-07 12:38 | disposition home or self-care (01) ==
PROVIDERS: Emergency Provider Nurse Practitioner Family; PCP Nurse Practitioner Family
DX: N39.0 Urinary tract infection, site not specified (principal); B96.29 Other Escherichia coli [E. coli] as the cause of diseases classified elsewhere; M54.59 Other low back pain; F17.210 Nicotine dependence, cigarettes, uncomplicated; F41.9 Anxiety disorder, unspecified; F32.A Depression, unspecified
CPT/HCPCS: 81001; 87086; 87088; 87186; 99212; 99214; G0463

== ENCOUNTER 2023-01-28 11:02 | Emergency (ER) | payer BC, SELFPAY ==
[2023-01-28 12:00] VITALS: BP 120/76; PULSE 93; RESP 18; TEMP 37.2; O2SAT 98; BMI 23.3
--- NOTE | 2023-01-28 12:06 | EXP.UTC ---
Discharge Plan Disposition Patient Disposition: Home, Self-Care Condition: Good Prescriptions Prescriptions: New amoxicillin [amoxicillin] 875 mg tablet 875 mg PO Q12H Qty: 20 0RF benzonatate [benzonatate] 100 mg capsule 100 mg PO TIDP PRN (Reason: Cough) Qty: 30 0RF methylprednisolone 4 mg Tablets,Dose Pack 4 mg PO DIRECTED Qty: 21 0RF Referrals Follow up/Referrals: Provider,Referral, MD [Primary Care Provider] - See instructions Activity Restrictions/Add. Instructions Additional Instructions/Restrictions: Drink plenty of fluids. Take tylenol or ibuprofen for pain or fever. Take the medications as directed. Follow up with your regular doctor. GO TO THE ER FOR ANY WORSENING SYMPTOMS Clinical Impressions Clinical Impression: Bronchitis, Sinusitis Instructions Patient Instructions: DI for Sinusitis, DI for Acute Bronchitis Discharge ED Provider: David Madsen [facility] General Stated complaint: sore throat,cough,congestion Time Seen by Provider: 01/28/23 12:06 History of Present Illness Provider Complaint: She states that for the for the past 3 days she has had sore throat, sinus congestion, chest congestion, productive cough, and malaise. She denies any fever but she has had chilling Related Data Previous Rx's Medication Instructions Recorded amoxicillin 875 mg tablet 875 mg PO Q12H #20 tabs 01/28/23 benzonatate 100 mg capsule 100 mg PO TIDP PRN Cough #30 caps 01/28/23 methylprednisolone 4 mg tablets in 4 mg PO DIRECTED #21 tabs 01/28/23 a dose pack Allergies Allergy/AdvReac Type Severity Reaction Status Date / Time No Known Allergies Allergy Verified 01/28/23 12:13 [facility] Disclaimer: The information contained in this section may have been updated after the patient was seen, as this information can be updated by other users. Medical History (Updated 01/28/23 @ 12:40 by David Madsen APRN) Anxiety Depression Surgical History No history of previous surgery Family History Father Cancer Other Diabetes Thyroid disorder Social History Smoking Status: Current every day smoker tobacco type: cigarettes packs per day: 1 second hand exposure: Yes alcohol intake: never substance use type: crack/cocaine, heroin and opiates current occupational status: employed Travel in the last 8 weeks: None ROS Obtained: Yes All systems reviewed & no additional complaints except as documented Constitutional Constitutional: Reports chills and Denies fever(s) Eyes Eyes: Denies eye discharge ENT Ears, Nose, Mouth, and Throat: Reports as per HPI Cardiovascular Cardiovascular: Denies chest pain Respiratory Respiratory: Denies chest congestion and Reports cough Gastrointestinal Gastrointestingal: Reports nausea; Denies abdominal pain, constipation, cramping, diarrhea or vomiting Musculoskeletal Musculoskeletal: Denies arthralgias Integumentary/Breasts Skin/Breast: Denies rash Neurologic Neurologic: Denies paresthesias Physical Exam General General appearance: alert and in no apparent distress Eye Eye exam: Present normal appearance, PERRL and EOMI ENT ENT exam: Present mucous membranes moist and normal external ear exam Expanded ENT Exam External ear exam: Present normal external inspection TM/Canal exam: Bilateral TM: erythema and bulging Nose exam: Absent sinus tenderness Nasal speculum exam: Bilateral: normal Mouth exam: Present normal external inspection; Absent drooling Teeth exam: Present normal inspection Throat exam: Present tonsillar erythema and tonsillomegaly Neck Neck exam: Present normal inspection, full ROM and trachea midline; Absent tenderness, lymphadenopathy or thyromegaly Chest Chest inspection: Present normal inspection and symmetric chest wall rise; Absent tenderness or rash
[2023-01-28 12:17] LABS: UTC Strep Screen (Rapid) Negative (Negative)
[2023-01-28 12:30] VITALS: BP 120/76; PULSE 93; RESP 18; TEMP 37.2; O2SAT 98
== END 2023-01-28 12:58 | disposition home or self-care (01) ==
PROVIDERS: Emergency Provider Nurse Practitioner Family
DX: J20.9 Acute bronchitis, unspecified (principal); J01.90 Acute sinusitis, unspecified; R07.0 Pain in throat; R05.8 Other specified cough; R09.81 Nasal congestion; R09.89 Other specified symptoms and signs involving the circulatory and respiratory systems; R53.81 Other malaise; F17.210 Nicotine dependence, cigarettes, uncomplicated
CPT/HCPCS: 87880; 99212; 99214; G0463

== ENCOUNTER 2023-08-21 16:03 | Outpatient (CLI) | payer BC, SELFPAY ==
[2023-08-22 10:24] LABS: HIV (1&2) Antibody Rapid NON REACTIVE
[2023-08-23 13:02] LABS: Hepatitis B Surface Antigen Negative (Negative); Rapid Plasma Reagin Ab Titer Non Reactive titer (NonRea<1:1)
[2023-08-25 14:39] LABS: HCV Ab Reactive (Non Reactive)
== END 2023-08-21 23:59 | disposition home or self-care (01) ==
LOC: LAB 16:05
PROVIDERS: Visit Provider Obstetrics & Gynecology
DX: Z72.51 High risk heterosexual behavior (principal); K75.2 Nonspecific reactive hepatitis
CPT/HCPCS: 36415; 86593; 87340

== ENCOUNTER 2023-09-13 18:39 | Emergency (ER) | payer BC, SELFPAY ==
[2023-09-13 18:45] VITALS: BP 128/83; PULSE 80; RESP 19; TEMP 36.6; O2SAT 96; BMI 24.5
--- NOTE | 2023-09-13 19:00 | EXP.UTC ---
Discharge Plan Disposition Patient Disposition: Home, Self-Care Condition: Good Prescriptions Prescriptions: New phenazopyridine [Pyridium] 200 mg tablet 200 mg PO Q8H 2 Days Qty: 6 0RF nitrofurantoin monohyd/m-cryst [Macrobid] 100 mg Capsule 100 mg PO BID Qty: 10 0RF Rx Instructions: must administer with a meal/food No Action norgestimate-ethinyl estradiol [Sprintec (28)] 0.25-35 mg-mcg tablet 1 tab PO DAILY Qty: 84 4RF Referrals Follow up/Referrals: Provider,Referral, MD [Primary Care Provider] - See instructions Activity Restrictions/Add. Instructions Additional Instructions/Restrictions: Drink plenty of fluids. Take tylenol or ibuprofen for pain or fever. Take the medications as directed. Follow up with your regular doctor. GO TO THE ER FOR ANY WORSENING SYMPTOMS The pyridium will make your urine turn orange, this is an expected side effect. It will stain your clothes if it comes into contact with them. We will culture the urine. That will tell what bacteria is causing your infection and which antibiotics will treat it best. Sometimes the first antibiotic we prescribe turns out to not work against different bacteria. So, make sure you follow up within 3 days if you are not getting better. Clinical Impressions Clinical Impression: UTI (urinary tract infection) Instructions Patient Instructions: DI for Urinary Tract Infection (UTI), Urine Culture, Nitrofurantoin, Phenazopyridine Discharge ED Provider: David Madsen [facility] General Stated complaint: poss UTI Mode of Arrival: Ambulatory Source of Information: Patient Limitations: No Limitations Time Seen by Provider: 09/13/23 19:00 Description of Symptoms (Recalled from Triage Doc. by RN): PATIENT C/O PAIN WITH URINATION X 2 DAYS HEENT Symptoms (Recalled from RN notes): No Resp Symptoms (Recalled from RN notes): No Skin Symptoms (Recalled from RN notes): No MS Symptoms (Recalled from RN notes): No Functional Status (Recalled from RN notes): WNL Related Data Previous Rx's Medication Instructions Recorded norgestimate 0.25 mg-ethinyl 1 tab PO DAILY #84 tabs 09/05/23 estradiol 35 mcg tablet (Sprintec (28)) nitrofurantoin 100 mg PO BID #10 caps 09/13/23 monohydrate/macrocrystals 100 mg capsule (Macrobid) phenazopyridine 200 mg tablet 200 mg PO Q8H 2 days #6 tabs 09/13/23 (Pyridium) Allergies Allergy/AdvReac Type Severity Reaction Status Date / Time No Known Allergies Allergy Verified 08/21/23 15:40 Worker's Comp Is this a Worker's Comp case?: No [facility] Disclaimer: The information contained in this section may have been updated after the patient was seen, as this information can be updated by other users. Medical History (Updated 09/13/23 @ 19:16 by David Madsen APRN) Urinary tract infection Depression Anxiety Surgical History [place] teeth extracted Family History Father Cancer Colon Other Diabetes Thyroid disorder Social History Smoking Status: Current every day smoker tobacco type: cigarettes packs per day: 1 second hand exposure: Yes alcohol intake: never substance use type: crack/cocaine, heroin and opiates current occupational status: employed Travel in the last 8 weeks: None Medical Decision Making Vital Signs: 09/13/23 18:45 Temperature 97.9 F Temperature Source Oral Pulse Rate [Left Brachial] 80 Respiratory Rate 19 Blood Pressure [Left Arm] 128/83 Blood Pressure Mean [Left Arm] 98 Blood Pressure Source [Left Arm] Automatic Cuff Blood Pressure Position [Left Arm] Sitting 02 Sat by Pulse Oximetry 96 Oxygen Delivery Method Room Air
[2023-09-13 19:01] LABS: Apearance,Urine Cloudy (Clear); Color,Urine Orange (Yellow); Glucose,Urine (UA) 100 (Negative); PH,Urine 5.5 (5.0-8.5); Protein,Urine 3+ (Negative); Specific Gravity, Urine 1.025 (1.005-1.030)
[2023-09-13 19:02] LABS: Bilirubin,Urine 1+ (Negative); Blood, Urine 3+ (Negative); Ketones,Urine TRACE (Negative); UTC Leukocyte Esterase,Urine 3+ (Negative); UTC Nitrate,Urine Positive (Negative); Urobilinogen,Urine 4 EU/dl (0.2)
[2023-09-13 19:17] VITALS: BP 128/83; PULSE 80; RESP 19; TEMP 36.6; O2SAT 96
--- NOTE | 2023-09-17 18:46 | PC.NURSE ---
REVIEWED URINE CULTURE, NO CHANGE NEEDED
== END 2023-09-13 19:19 | disposition home or self-care (01) ==
PROVIDERS: Emergency Provider Nurse Practitioner Family
DX: N39.0 Urinary tract infection, site not specified (principal); B96.29 Other Escherichia coli [E. coli] as the cause of diseases classified elsewhere; R30.0 Dysuria
CPT/HCPCS: 81003; 87086; 87088; 87186; 99212; 99214; G0463

== ENCOUNTER 2023-10-25 13:22 | Outpatient (CLI) | payer BC, SELFPAY | END 2023-10-25 23:59 | disposition home or self-care (01) | LOC: LAB.DROPOF 10-26 10:12 | PROVIDERS: PCP Student in an Organized Health Care Education/Training Program; Visit Provider Student in an Organized Health Care Education/Training Program | DX: N39.0 Urinary tract infection, site not specified (principal) | CPT/HCPCS: 87086; 87088; 87186 ==

== ENCOUNTER 2023-12-24 13:21 | Emergency (ER) | payer BC, SELFPAY ==
[2023-12-24 13:30] VITALS: BP 105/74; PULSE 80; RESP 20; TEMP 36.6; O2SAT 98; BMI 23.7
--- NOTE | 2023-12-24 13:41 | ED_ITS ---
Discharge Plan Disposition Patient Disposition: Home, Self-Care Condition: Good Prescriptions Prescriptions: New phenazopyridine 200 mg Tablet 200 mg PO TID 2 Days Qty: 6 0RF ciprofloxacin HCl [Cipro] 500 mg tablet 500 mg PO BID 7 Days Qty: 14 0RF No Action norgestimate-ethinyl estradiol [Sprintec (28)] 0.25-35 mg-mcg tablet 1 tab PO DAILY Qty: 84 4RF Referrals Follow up/Referrals: Provider,Referral, MD [Primary Care Provider] - See instructions Activity Restrictions/Add. Instructions Additional Instructions/Restrictions: Drink plenty of fluids. Take tylenol or ibuprofen for pain or fever. Take the medications as directed. Follow up with your regular doctor. GO TO THE ER FOR ANY WORSENING SYMPTOMS The pyridium will make your urine turn orange, this is an expected side effect. It will stain your clothes if it comes into contact with them. We will culture the urine. That will tell what bacteria is causing your infection and which antibiotics will treat it best.This test takes 3 days to complete. Clinical Impressions Clinical Impression: UTI (urinary tract infection) Stand Alone Forms Stand Alone Forms: Work/School Release Instructions Patient Instructions: Urinary Tract Infection, Urine Culture, DI for Urinary Tract Infection (UTI), Phenazopyridine, Ciprofloxacin Print Language Print Language: Faroese Discharge ED Provider: David Madsen [facility] General Stated complaint: pain when urinating Mode of Arrival: Ambulatory Source of Information: Patient Limitations: No Limitations Time Seen by Provider: 12/24/23 13:41 Description of Symptoms (Recalled from Triage Doc. by RN): PATIENT C/O PAIN AFTER URINATION SINCE YESTERDAY HEENT Symptoms (Recalled from RN notes): No Resp Symptoms (Recalled from RN notes): No Skin Symptoms (Recalled from RN notes): No MS Symptoms (Recalled from RN notes): No Functional Status (Recalled from RN notes): WNL Related Data Previous Rx's ?Medication ?Instructions ?Recorded norgestimate 0.25 mg-ethinyl 1 tab PO DAILY #84 tabs 09/05/23 estradiol 35 mcg tablet (Sprintec (28)) ciprofloxacin HCl 500 mg tablet 500 mg PO BID 7 days #14 tabs 12/24/23 (Cipro) phenazopyridine 200 mg tablet 200 mg PO TID 2 days #6 tabs 12/24/23 Allergies Allergy/AdvReac Type Severity Reaction Status Date / Time No Known Allergies Allergy Verified 10/25/23 14:58 Worker's Comp Is this a Worker's Comp case?: No [facility] Disclaimer: The information contained in this section may have been updated after the patient was seen, as this information can be updated by other users. Medical History Urinary tract infection Depression Anxiety Surgical History [place] teeth extracted Family History Father Cancer Colon Other Diabetes Thyroid disorder Social History Smoking Status: Current every day smoker tobacco type: cigarettes packs per day: 1 second hand exposure: Yes alcohol intake: never substance use type: crack/cocaine, heroin and opiates current occupational status: employed Travel in the last 8 weeks: None ROS Obtained: Yes All systems reviewed & no additional complaints except as documented Constitutional Constitutional: Reports system reviewed and no additional complaints, except as documented, Denies chills and Denies fever(s) Eyes Eyes: Denies eye discharge ENT Ears, Nose, Mouth, and Throat: Denies dysphagia, Denies sore throat and Denies throat swelling Cardiovascular Cardiovascular: Denies chest pain and Denies dyspnea Respiratory Respiratory: Denies chest congestion, Denies cough and Denies dyspnea Gastrointestinal Gastrointestingal: Denies abdominal pain, constipation, diarrhea, dysphagia, nausea or vomiting Genitourinary Female Genitourinary: Reports as per HPI, Reports dysuria, Reports urinary frequency, Denies urinary incontinence, Reports urinary hesitancy and Reports urinary urgency Musculoskeletal Musculoskeletal: Denies arthralgias and Reports back pain Integumentary/Breasts Skin/Breast: Denies rash Neurologic Neurologic: Denies paresthesias Allergic/Immunologic Allergic/Immunologic: Denies throat swelling Physical Exam General General appearance: alert and in no apparent distress Head Head exam: atraumatic and normocephalic Eye Eye exam: Present normal appearance, PERRL and EOMI ENT ENT exam: Present normal exam, mucous membranes moist, TM's normal bilaterally and normal external ear exam Neck Neck exam: Present normal inspection, full ROM and trachea midline; Absent tenderness, meningismus or lymphadenopathy Chest Chest inspection: Present normal inspection and symmetric chest wall rise; Absent tenderness Respiratory Respiratory exam: Present normal lung sounds bilaterally; Absent respiratory distress, wheezes or stridor Cardiovascular Cardiovascular exam: Present regular rate, normal rhythm and normal heart sounds Abdominal Exam Abdominal exam: Present soft and normal bowel sounds; Absent distention, tenderness, guarding, rebound, rigidity, incision, psoas sign, obturator sign, heel tap sign, Gallagher's sign, Rovsing's sign or tenderness at McBurney's Point Extremities Exam Extremities exam: Present normal inspection, full ROM and normal capillary refill; Absent tenderness, edema, joint swelling, calf tenderness or cyanosis Back Exam Back exam: Present normal inspection and full ROM; Absent tenderness, CVA tenderness (R) or CVA tenderness (L) Neurological Exam Neurological exam: Present alert, oriented X3 and normal gait Psychiatric Psychiatric exam: Present normal affect and normal mood Skin Skin exam: Present warm, dry, intact and normal color Lymphatic Lymphatic Findings: no adenopathy Medical Decision Making Medical Records Medical records reviewed: No I reviewed the patient's medical records. Screening: Per USPSTF and CDC recommendations, given the prevalence of disease in our region, it is our hospital?s policy to screen for HIV and viral Hepatitis for all patients aged 18 and over and those with ongoing risk factors. Richard Inquiry Pt receiving controlled substance: No Vital Signs: 12/24/23 13:30 Temperature 97.9 F Temperature Source Oral Pulse Rate [Left Brachial] 80 Respiratory Rate 20 Blood Pressure [Left Arm] 105/74 L Blood Pressure Mean [Left Arm] 84 Blood Pressure Source [Left Arm] Automatic Cuff Blood Pressure Position [Left Arm] Sitting 02 Sat by Pulse Oximetry 98 Oxygen Delivery Method Room Air Lab Data Lab results reviewed: Yes I reviewed the patient's lab results. Orders (Tests/Meds): ORDERS Category Date Time Status UA [Urinalysis and Microscopic] Stat Lab 12/24/23 13:37 Ordered
[2023-12-24 13:54] LABS: Microscopic, Urine URINE MICROSCOPIC (MICROSCOPIC)
[2023-12-24 14:20] VITALS: BP 105/74; PULSE 80; RESP 20; TEMP 36.6; O2SAT 98
[2023-12-24 15:14] LABS: Appearance,Urine CLEAR (Clear); Bilirubin,Urine Negative (Negative); Blood, Urine 2+ (Negative); Color,Urine YELLOW (Yellow); Glucose,Urine (UA) Negative (Negative); Ketones,Urine Negative (Negative); Leukocyte Esterase,Urine 2+ (Negative); Nitrate,Urine Negative (Negative); Protein,Urine 1+ (Negative); Specific Gravity, Urine 1.025 (1.005-1.030); Urobilinogen,Urine 0.2 EU/dl (0.2)
== END 2023-12-24 14:22 | disposition home or self-care (01) ==
PROVIDERS: Emergency Provider Nurse Practitioner Family
DX: N39.0 Urinary tract infection, site not specified (principal)
CPT/HCPCS: 81001; 87086; 87088; 87186; 99213; G0381